=== PATIENT | female | born 1995 | race American Indian/Alaskan Native ===

== ENCOUNTER 2020-10-05 18:59 | Emergency (ER) | payer MEDICAID ==
[2020-10-05] MEDS ORDERED: ACETAMINOPHEN 500 MG TAB PO ONE (19:23)
--- NOTE | 2020-10-05 19:26 | Event Note ---
ED Screening Note Date of service: 10/05/20 ED Screening Note: Patient is a A0 24 yo AA female who is approximately 14 weeks gestation who presents to the ED with complaint of acute onset pelvic pain after she slipped and fell down at home while playing with her dog about 1 hour ago. Patient states the pain has been persistent and constant, sharp and severe. Patient denies hematuria, nausea, vomiting, dizziness, syncope, loss of consciousness, fever and chills, dysuria, urinary frequency and urgency or vaginal discharge and bleeding. This initial assessment/diagnostic orders/clinical plan/treatment(s) is/are subject to change based on patients health status, clinical progression and re- assessment by fellow clinical providers in the ED. Further treatment and workup at subsequent clinical providers discretion. Patient/guardian urged not to elope from the ED as their condition may be serious if not clinically assessed and managed. Initial orders include: CBC, CMP, UA, HCG QUANT; Transvaginal US
[2020-10-05 19:41] LABS: Basophils # (Auto) 0.1 K/mm3 (0.0-0.1); Basophils % (Auto) 0.6 % (0.0-1.8); Eosinophils # (Auto) 0.3 K/mm3 (0.0-0.4); Eosinophils % (Auto) 2.9 % (0.0-4.3); Hematocrit 37.7 % (30.3-42.9); Hemoglobin 12.8 gm/dl (10.1-14.3); Lymphocytes # (Auto) 2.3 K/mm3 (1.2-5.4); Lymphocytes % (Auto) 25.6 % (13.4-35.0); Mean Corpuscular HGB Conc 34 % (30-34); Mean Corpuscular Volume 83 fl (79-97); Monocytes # (Auto) 0.6 K/mm3 (0.0-0.8); Monocytes % (Auto) 6.6 % (0.0-7.3); Platelet Count 196 K/mm3 (140-440); Red Blood Count 4.55 M/mm3 (3.65-5.03); Red Cell Distribution Width 13.9 % (13.2-15.2)
--- NOTE | 2020-10-05 19:55 | Emergency Department Report ---
ED Fall HPI - General Chief Complaint: Abdominal Pain Stated Complaint: FALL Source: patient Mode of arrival: Ambulatory - History of Present Illness Initial Comments: Patient is a A0 24 yo AA female who is approximately 14 weeks gestation who presents to the ED with complaint of acute onset pelvic pain after she slipped and fell down on the floor at home while playing with her dog about 1 hour ago. Patient states the pain has been persistent and constant, sharp and severe since the onset, and gets worse with movement or palpation of the lower abdomen. Patient denies hematuria, nausea, vomiting, dizziness, syncope, loss of consciousness, head or neck injuries, back pain, fever and chills, dysuria, urinary frequency and urgency or vaginal discharge and vaginal bleeding. 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 denies: headache, neck pain, numbness, weakness, chest paint, shortness of breath, hematuria, unable to walk, lightheaded, vertigo, confusion, other - Related Data Previous Rx's Medication Instructions Recorded Last Taken Type Acetaminophen [Tylenol] 500 mg PO Q6HR PRN #30 tablet 10/05/20 Unknown Rx Allergies Allergy/AdvReac Type Severity Reaction Status Date / Time No Known Allergies Allergy Unverified 10/05/20 19:38 ED Review of Systems ROS: Stated complaint: FALL Other details as noted in HPI Constitutional: denies: chills, fever Eyes: denies: eye pain, eye discharge, vision change ENT: denies: ear pain, throat pain Respiratory: denies: cough, shortness of breath, wheezing Cardiovascular: denies: chest pain, palpitations Endocrine: no symptoms reported Gastrointestinal: abdominal pain (Low abdominal pain diffusely). denies: nausea, vomiting, diarrhea, hematemesis Genitourinary: denies: urgency, dysuria, discharge Musculoskeletal: denies: back pain, joint swelling, arthralgia Skin: denies: rash, lesions Neurological: denies: headache, weakness, paresthesias Psychiatric: denies: anxiety, depression Hematological/Lymphatic: denies: easy bleeding, easy bruising ED Past Medical Hx - Past Medical History Previous Medical History?: No - Surgical History Past Surgical History?: No - Social History Smoking Status: Never Smoker - Medications Home Medications: Home Medications Medication Instructions Recorded Confirmed Last Taken Type Acetaminophen [Tylenol] 500 mg PO Q6HR PRN #30 tablet 10/05/20 Unknown Rx ED Physical Exam - General Limitations: No Limitations General appearance: alert, in no apparent distress - Head Head exam: Present: atraumatic, normocephalic, normal inspection - Eye Eye exam: Present: normal appearance, PERRL, EOMI Pupils: Present: normal accommodation - ENT ENT exam: Present: normal exam, normal orophraynx, mucous membranes moist, TM's normal bilaterally, normal external ear exam - Neck Neck exam: Present: normal inspection, full ROM - Respiratory Respiratory exam: Present: normal lung sounds bilaterally. Absent: respiratory distress, wheezes, rales, rhonchi, chest wall tenderness, accessory muscle use, decreased breath sounds, prolonged expiratory, other - Cardiovascular Cardiovascular Exam: Present: regular rate, normal rhythm, normal heart sounds. Absent: systolic murmur, diastolic murmur, rubs, gallop - GI/Abdominal GI/Abdominal exam: Present: soft, tenderness (Palpable diffuse lower abdominal tenderness, worse on the left lower quadrant), normal bowel sounds. Absent: guarding, rebound, hyperactive bowel sounds, hypoactive bowel sounds, organomegaly - Bi-manual exam: Present: other (Pelvic exam deferred at this time) - Extremities Exam Extremities exam: Present: normal inspection, full ROM, normal capillary refill - Back Exam Back exam: Present: normal inspection, full ROM. Absent: tenderness, CVA tenderness (R), CVA tenderness (L), muscle spasm, paraspinal tenderness, vertebral tenderness - Neurological Exam Neurological exam: Present: alert, oriented X3, CN II-XII intact, normal gait, reflexes normal - Psychiatric Psychiatric exam: Present: normal affect, normal mood - Skin Skin exam: Present: warm, dry, intact, normal color. Absent: rash ED Course Vital Signs 10/05/20 19:44 Respiratory 20 Rate ED Medical Decision Making - Lab Data Result diagrams: 10/05/20 19:29 10/05/20 19:29 - Radiology Data Findings [facility] [address] [place] [address] Ultrasound Report Signed Patient: ELFEGO CORREA MR#: [id number] : 1995 Acct:[id number] Age/Sex: 24 / F ADM Date: 10/05/20 Loc: ED Attending Dr: Ordering Physician: SAVANNA CHILDERS Date of Service: 10/05/20 Procedure(s): US OB >= 14 weeks Fetus Accession Number(s): [id number] cc: SAVANNA CHILDERS ULTRASOUND OBSTETRIC INDICATION / CLINICAL INFORMATION: Pain - lower abdomen. Clinical Gestational Age (GA): 14.4 weeks.days TECHNIQUE: Transabdominal. COMPARISON: None available. FINDINGS: There is a single intrauterine . Biparietal Diameter = 2.9 cm = 15.2 weeks.days Head Circumference = 10.8 cm = 15.1 weeks.days Abdominal Circumference = 8.1 cm = 14.3 weeks.days Femur Length = 1.4 cm = 14.1 weeks.days Average Ultrasound Age (AUA) = 14.5 weeks.days Heart Rate: 149 beats per minute. Estimated Weight in grams (if calculated): Not calculated Estimated Weight Growth Percentile (if calculated): Not calculated Position: cephalic. Cervix: closed. Length in cm (if measured): 3.3 Placenta: Posterior fundal and free of the os. Amniotic Fluid Volume: normal Maternal Adnexa: No significant abnormality. IMPRESSION: 1. Single, living intrauterine with estimated sonographic age of 14.5 weeks.days 2. No significant sonographic abnormality. Signer Name: Julieta Hannon MD Signed: 10/05/2020 8:48 PM Workstation Name: [id number] Transcribed By: SS Dictated By: JULIETA HANNON Electronically Authenticated By: JULIETA HANNON Signed Date/Time: 10/05/202047 DD/ 46 TD/TT: - Medical Decision Making This is a A0 24 yo AA female who is approximately 14 weeks gestation who presents to the ED with complaint of acute onset pelvic pain after she slipped and fell down on the floor at home while playing with her dog about 1 hour ago. Patient states the pain has been persistent and constant, sharp and severe since the onset, and gets worse with movement or palpation of the lower abdomen. In the ED, patient is alert and oriented x3 and is not in any distress but appears to be in pain and is hemodynamically stable. Patient was treated for pain in the ED and basic labs were ordered as well as transvaginal ultrasound. In the ED, patient is alert and oriented x3 and is not in any distress. Patient was treated for pain in the ED with Tylenol. Lab test results were reviewed and are all nonactionable. Transvaginal ultrasound showed a single, living intrauterine with estimated sonographic age of 14.5 weeks.days with heart rate of 149 bpm. No significant sonographic abnormality. On reevaluation, patient's pain is well controlled medication. Patient was discharged home on pain medications and advised to follow-up with her [employer] physician in 2 to 3 days for reevaluation or return to the ED immediately if symptoms get worse. - Differential Diagnosis UTI; placental abruption; subchorionic bleed; ovarian cyst Critical care attestation.: If time is entered above; I have spent that time in minutes in the direct care of this critically ill patient, excluding procedure time. ED Disposition Clinical Impression: Blunt trauma of abdominal wall Qualifiers: Encounter type: initial encounter Qualified Code(s): S39.81XA - Other specified injuries of abdomen, initial encounter Strain of abdominal muscle Qualifiers: Encounter type: initial encounter Qualified Code(s): S39.011A - Strain of muscle, fascia and tendon of abdomen, initial encounter Disposition: DC-01 TO HOME OR SELFCARE Is pt being admited?: No Does the pt Need Aspirin: No Condition: Stable Instructions: Blunt Abdominal Trauma, Abdominal Pain (ED) Additional Instructions: Observe complete pelvic rest, with no heavy lifting or sexual activity or strenuous physical activities. Take Tylenol as needed for pain and follow-up with your [employer] physician in 2 to 3 days for reevaluation. Return to the ED immediately if symptoms get worse especially if you develop vaginal bleeding, worsening pain, intractable nausea and vomiting. Prescriptions: Acetaminophen [Tylenol] 500 mg PO Q6HR PRN #30 tablet PRN Reason: Pain , Severe (7-10) Time of Disposition: 19:56 Print Language: MACEDONIAN
[2020-10-05 20:05] LABS: Alanine Aminotransferase 9 units/L (7-56); Albumin 3.9 g/dL (3.9-5); BUN/Creatinine Ratio 12; Blood Urea Nitrogen 7 mg/dL (7-17); Calcium 8.9 mg/dL (8.4-10.2); Hemolysis Index 6
--- NOTE | 2020-10-05 20:53 | Ultrasound Report ---
ULTRASOUND OBSTETRIC INDICATION / CLINICAL INFORMATION: Pain - lower abdomen. Clinical Gestational Age (GA): 14.4 weeks.days TECHNIQUE: Transabdominal. COMPARISON: None available. FINDINGS: There is a single intrauterine . Biparietal Diameter = 2.9 cm = 15.2 weeks.days Head Circumference = 10.8 cm = 15.1 weeks.days Abdominal Circumference = 8.1 cm = 14.3 weeks.days Femur Length = 1.4 cm = 14.1 weeks.days Average Ultrasound Age (AUA) = 14.5 weeks.days Heart Rate: 149 beats per minute. Estimated Weight in grams (if calculated): Not calculated Estimated Weight Growth Percentile (if calculated): Not calculated Position: cephalic. Cervix: closed. Length in cm (if measured): 3.3 Placenta: Posterior fundal and free of the os. Amniotic Fluid Volume: normal Maternal Adnexa: No significant abnormality. IMPRESSION: 1. Single, living intrauterine with estimated sonographic age of 14.5 weeks.days 2. No significant sonographic abnormality. Signer Name: Jose Angel Hannon MD Signed: 10/05/2020 8:48 PM Workstation Name: [id number]
[2020-10-05 23:10] LABS: Bacteria,Urine 2+ /HPF (Negative); Bilirubin,Urine NEG (Negative); Blood,Urine NEG (Negative); Color,Urine Yellow (Yellow); Mucus,Urine FEW /HPF; Protein,Urine <15 mg/dL mg/dL (Negative); Urobilinogen,Urine < 2.0 mg/dL (<2.0)
[2020-10-06 00:54] VITALS: BP 121/78
== END 2020-10-05 23:30 | disposition home or self-care (01) ==
LOC: ED 18:59
DX: O9A.211 Injury, poisoning and certain other consequences of external causes complicating pregnancy, first trimester (principal); S39.011A Strain of muscle, fascia and tendon of abdomen, initial encounter; S39.81XA Other specified injuries of abdomen, initial encounter; Z79.899 Other long term (current) drug therapy
CPT/HCPCS: 36415; 76805; 80053; 81001; 84702; 85025; 87086